=== PATIENT | female | born 1985 | race African-American/Black ===

== ENCOUNTER 2016-10-15 17:12 | Emergency (ER) | payer SELFPAY ==
--- NOTE | 2016-10-15 21:18 | RAD ---
LEFT FOOT THREE VIEWS 10/15/16 No fracture or periosteal reaction was seen. The bones and soft tissues appear normal. There were no findings to explain pain or numbness. IMPRESSION: No acute findings. POS: HOME
== END 2016-10-15 17:55 | disposition home or self-care (01) ==
LOC: BURERS 17:12
DX: M79.672 Pain in left foot (principal); F17.210 Nicotine dependence, cigarettes, uncomplicated

== ENCOUNTER 2019-01-14 06:54 | Emergency (ER) | payer SELFPAY ==
[2019-01-14] MEDS ORDERED: Ibuprofen 200 MG TAB ONE (07:25)
[2019-01-14] MEDS ORDERED: Acetaminophen/Codeine 30-300mg Tablet ONE (07:25)
--- NOTE | 2019-01-14 09:09 | RAD ---
XR Toe(s) Lt Min 2 View History: Injury Comparison: Foot radiographs 2017 Findings: Nondisplaced comminuted fracture distal phalanx small toe with intra-articular extension. T here is a longitudinal fracture extending to the interphalangeal joint. On the AP view there is a radiopacity projecting of the small toe interphalangeal joint although arti ot be reproduced on any other view, likely artifactual. Impression: Comminuted intra-articular fracture without significant displacement distal phalanx great toe.
== END 2019-01-14 07:31 | disposition home or self-care (01) ==
LOC: BURERS 06:54
DX: S92.425A Nondisplaced fracture of distal phalanx of left great toe, initial encounter for closed fracture (principal); F17.210 Nicotine dependence, cigarettes, uncomplicated; X50.9XXA Other and unspecified overexertion or strenuous movements or postures, initial encounter; Y93.66 Activity, soccer